=== PATIENT | female | born 1980 | race Caucasian/White ===

== ENCOUNTER 2020-04-28 01:52 | Outpatient (CLI) | payer BC, SELFPAY ==
[2020-04-28 19:30] LABS: SARS-CoV-2 RNA PCR Negative
== END 2020-04-28 01:53 | disposition home or self-care (01) ==
LOC: ANHCOVIDDT 01:58
PROVIDERS: Visit Provider Obstetrics & Gynecology
DX: Z01.812 Encounter for preprocedural laboratory examination (principal); Z11.59 Encounter for screening for other viral diseases
CPT/HCPCS: 87635; C9803; U0003

== ENCOUNTER 2020-05-01 02:24 | Day surgery (SDC) | payer BC, SELFPAY ==
[2020-04-26 10:38] VITALS: BMI 22.1
[2020-05-01] VITALS (12 sets, daily range): BP systolic 115–164; BP diastolic 77–109; PULSE 64–90; RESP 12–20; TEMP 36.3–36.9; O2SAT 98–100
--- NOTE | 2020-05-01 11:42 | WPDANESEPPF ---
Anes - Initial Pre Proc Eval Procedure: Operation Date: 05/01/20 13:00 Proposed Procedures p Bilateral Laparoscopic Ovarian Cystectomy - Salbador Sweeney MD Date/Time: 05/01/20 11:42 Surgeon: Salbador Sweeney MD Pre Op Diagnosis: Bilateral Ovarian Cysts Patient Data Age: 40 Gender: F Height: 5 ft 9 in Weight: 68.04 kg Allergies Allergy/AdvReac Type Severity Reaction Status Date / Time hydrocodone AdvReac Itching Verified 04/26/20 10:36 Home Medications Medication Instructions Recorded Confirmed Type bupropion HCl 300 mg PO DAILY 04/26/20 04/26/20 History clonazepam 0.5 mg PO DAILY PRN 04/26/20 04/26/20 History naproxen 500 mg PO BID PRN 04/26/20 04/26/20 History oxycodone-acetaminophen 1 tablet PO Q6H PRN 04/26/20 04/26/20 History Patient hx anesthesia problems: none Family hx anesthesia problems: none PMFSH Past Medical History Medical History (Updated 05/01/20 @ 11:45 by Matt Jimenez MD) Anxiety Depression Ovarian cyst Surgical History Surgical History (Updated 05/01/20 @ 11:46 by Matt Jimenez MD) H/O arthroscopic knee surgery History of section Social History Social History Smoking status: Never smoker Spiritual care concerns: No Anes - Eval Final PreProcedure Day of Procedure 05/01/20 11:42 Patient weight: normal Heart: regular rate and rhythm Lungs: clear to auscultation Airway: Mallampati scale class II Neurological: alert and oriented Last oral intake: >/= 8 hours ASA classification: II Emergent: no Anesthetic plan: proceed Anesthesia type and monitoring: general ETT and standard monitoring Informed Consent: The patient's anesthetic plan and its attendant risks and benefits were discussed with the patient/family/POA. Questions were solicited and answers provided to the satisfaction of the patient/family/POA.
[2020-05-01] MEDS: ACETAMINOPHEN 500 MG TABLET 1000 MG PO (11:47)
[2020-05-01] MEDS: LACTATED RINGERS 1,000 ML 30 ML IV CONT ×2 (11:50→15:18)
[2020-05-01] MEDS: KETOROLAC 15 MG/ML VIAL (*BKC) IV PUSH (11:53)
--- NOTE | 2020-05-01 11:56 | WPDHPUPDATE1 ---
History and Physical Update Update Date/Time: 05/01/20 11:56 History and Physical has been reviewed, including an updated exam of the patient. There are NO changes in the patient's condition. Risks, benefits, and alternatives have been discussed and questions answered. Patient agrees to proceed with procedure.
--- NOTE | 2020-05-01 15:10 | P.OP_ITS ---
Procedure Note - Detailed Date of procedure: 05/01/20 Pre-op diagnosis: Bilateral Ovarian Cysts Procedure performed: Laparoscopic bilateral ovarian cystectomy, adhesiolysis, resection of endometriosis Description of procedure: The patient was taken the operating room. She was prepped and draped in the dorsal lithotomy position after induction of general anesthesia. A 5 mm left upper quadrant incision was made in the abdominal skin with a scalpel. A 5 mm trocar was inserted the intra-abdominal cavity under direct visualization of the scope. A 5 mm left lower quadrant incision was made with the scalp on the abdominal skin and a 5 mm trocar was inserted the intra- abdominal cavity under direct visualization of the scope. A 5 mm infraumbilical incision was made with scalpel and a 5 mm trocar was inserted into the intra- abdominal cavity under direct visualization of the scope. bilateral ovarian cystectomy was performed. It was performed with sharp and blunt dissection using cautery and irrigation as well. Cyst capsule were peeled out after cysts were unroofed and irrigated and cleared of debris. Ovaries remain hemostatic with cautery. These lysis was performed using sharp and blunt dissection anterior to the uterus between the uterus and the anterior abdominal wall. Adhesions were taken down. Interceed was placed between the uterus and the anterior abdominal wall. The perineum and left pelvic sidewall was resected. It was peeled out over the ureter. Ureter was identified and dissected out down to the level of the uterine artery. Using sharp and blunt dissection the peritoneum was removed and a large portion of the left Poste rior cul-de-sac. Cautery was used to make hemostatic. Interceed was placed over this area. The pelvis was irrigated with copious amounts of normal saline. The pneumoperitoneum was reduced. The trocars were removed. The patient was taken recovery room stable condition. Sponge lap and needle counts were correct x2. Anesthesia: GETA Surgeon: Salbador Sweeney MD Estimated blood loss (mL): 75 Drains: No Packing: No Complications: No immediate complications Condition: stable Disposition: PACU Findings: Bilateral ovarian cyst, chocolate cyst on the left, adhesions between the uterus and anteror Pelvis. large endometrial implant the left posterior cul-de-sac.
--- NOTE | 2020-05-01 15:51 | SUR.PHASEI ---
Informed Dr. oLmas of patient's BP running 150s-160s/90s-100s.
[2020-05-01] MEDS: LABETALOL HCL INJ 100 MG/20 ML VIAL IV PUSH (15:56)
== END 2020-05-01 18:05 | disposition home or self-care (01) ==
PROVIDERS: Visit Provider Obstetrics & Gynecology
PROC: (CPT 49320; principal; 2020-05-01 13:00)
DX: N83.292 Other ovarian cyst, left side (principal); N83.291 Other ovarian cyst, right side
CPT/HCPCS: 58662; 88305; A9270; J0330; J1100; J1170; J1885; J2250; J2405; J2704; J3010; J7030; J7120

== ENCOUNTER 2020-05-10 10:23 | Day surgery (SDC) | payer BC, SELFPAY ==
[2020-05-10] VITALS (13 sets, daily range): BP systolic 116–160; BP diastolic 74–100; PULSE 65–108; RESP 12–20; TEMP 36.8–36.9; O2SAT 98–100
--- NOTE | ~2020-05-10 | CT_ITS ---
EXAMINATION: CT abdomen pelvis w con DATE: 05/10/2020 11:38 INDICATION: Abdominal pain. Severe periumbilical pain radiating to the vagina. Dysuria, hematuria. La paroscopic ovarian cyst removal on 05/01/2020. TECHNIQUE: Computed tomography (CT) of the abdomen and pelvis was performed with 100 cc Omnipaque 350 intravenous contrast. Automated exposure control and iterative reconstruction technique were employe d. Exam dose: 318.12 mGy-cm total exam DLP. COMPARISON: None. FINDINGS: The lung bases are clear of infiltrate or consolidation. Normal heart size. No pericardial or pleural effusion. There are multiple gallstones. No gallbladder wall thickening or pericholecystic fluid or inflammator y change is appreciated. No hepatic, splenic, pancreatic, and adrenal or renal space-occupying mass l esion is detected. No bile duct or pancreatic duct dilatation. No urinary tract calculus or hydrouret eronephrosis is evident. There is an IUD within the uterus. The urinary bladder is unremarkable. There is a moderately large amount of high attenuation fluid in the left and right pelvis, from the c ul-de-sac extending over the roof of the uterus, consistent with pelvic cavity blood. There are prominent adnexal veins, left greater than right. Fluid levels are noted in the ascending colon and hepatic flexure. No bowel obstruction, bowel wall t hickening, pneumatosis or intraperitoneal free air. Normal caliber of the abdominal aorta. No intraperitoneal or retroperitoneal mass lesion or adenopath y is evident. Included skeletal structures are unremarkable. IMPRESSION: Moderate amount of high attenuation fluid in the pelvic area, consistent with blood or h ematoma. IUD within uterus Cholelithiasis Reviewed, dictated and finalized at [facility] Reviewed, dictated and finalized at [facility] IMPRESSION: Moderate amount of high attenuation fluid in the pelvic area, cons istent with blood or hematoma. IUD within uterus Cholelithiasis
--- NOTE | 2020-05-10 10:39 | ED.ABDPAIN ---
HPI - Abdominal Pain General Chief Complaint: Abdominal Pain Stated Complaint: Abd Pain Time Seen by Provider: 05/10/20 10:38 Source: patient Mode of arrival: ambulatory Limitations: no limitations History of Present Illness HPI narrative: Patient is a 40-year-old female with recent ovarian cyst removal by Dr. Sweeney on 05/01/20 who presents for evaluation of severe abdominal pain. Patient was evaluated at Dr. Frank's office this morning and found to be febrile, tachycardic and that she was sent to our facility for evaluation especially given the nature of her pain being severe. She reports extensive bruising over her stomach that enters into the left labia, hematuria, and then severe abdominal pain throughout her abdomen. She reports abdominal bloating. She reports objective fever and chills at home, denies nausea or vomiting. Related Data Home Medications Medication Instructions Recorded Confirmed bupropion HCl 300 mg PO DAILY 04/26/20 05/01/20 clonazepam 0.5 mg PO DAILY PRN 04/26/20 05/01/20 naproxen 500 mg PO BID PRN 04/26/20 05/01/20 oxycodone-acetaminophen 1 tablet PO Q6H PRN 04/26/20 05/01/20 Allergies Allergy/AdvReac Type Severity Reaction Status Date / Time hydrocodone AdvReac Itching Verified 05/01/20 12:43 Review of Systems Review of Systems: Narrative: CONSTITUTIONAL: Reports fever and chills EYES: Denies visual changes, redness, or discharge. ENT: Denies rhinorrhea, congestion, sore throat, or otalgia. CARDIOVASCULAR: Denies chest pain, palpitations, or edema. RESPIRATORY: Denies cough or dyspnea. GASTROINTESTINAL: Reports abdominal pain, bloating GENITOURINARY: Denies dysuria, reports hematuria SKIN: Denies rash or itching. MUSCULOSKELETAL: Denies back pain, joint pain, or myalgia. NEUROLOGIC: Denies headache, numbness, or weakness. [facility] Past Medical History Medical History (Updated 05/10/20 @ 12:28 by Wendi Schneider MD) Anxiety Depression Ovarian cyst Surgical History Surgical History (Updated 05/10/20 @ 11:01 by Wendi Schneider MD) H/O arthroscopic knee surgery History of section History of removal of ovarian cyst Social History Social History Smoking status: Never smoker Gender identity (if verbalized by the patient): Female Spiritual care concerns: No Exam Narrative: Exam Narrative: GENERAL: Awake, alert, tearful, uncomfortable appearing HEAD: Normocephalic, atraumatic. EYES: PERRLA and EOMI. ENT: Nares clear, no rhinorrhea or epistaxis. Mucous membranes moist. NECK: Supple. CHEST: No respiratory distress, breathing even and non labored HEART: Regular rate, sinus rhythm ABDOMEN: Mild distention, tender throughout, positive guarding, laparoscopic surgery sites are clean, dry, intact, the left lower quadrant surgical site is ecchymotic, this extends into the left labia, no labial erythema, edema present, abdomen is peritoneal : Labia majora and minora normal without lesions. The left labia majora is ecchymotic, no significant edema. No evidence of abscess. No erythema. Vagina with out blood. No cervical motion tenderness. No adnexal tenderness or fullness bilaterally. Slight serous discharge present. EXTREMITIES: Normal range of motion. No edema. SKIN: Warm, dry, no rash. NEURO:No focal deficits. Alert and oriented x3 Course Vital Signs Vital signs: Vital Signs Temperature 36.8 C 05/10/20 10:30 Pulse Rate 104 H 05/10/20 10:30 Respiratory Rate 20 05/10/20 10:30 Blood Pressure 160/100 H 05/10/20 10:30 Pulse Oximetry 100 05/10/20 10:30 Temperature 36.8 C 05/10/20 10:30 Pulse Rate 90 05/10/20 11:45 Respiratory Rate 12 05/10/20 11:45 Blood Pressure 137/95 H 05/10/20 11:45 Pulse Oximetry 100 05/10/20 11:45 MDM - Abdominal Pain MDM Narrative Medical decision making narrative: Patient presented with severe abdominal pain [facility] t
--- NOTE | 2020-05-10 10:41 | PC.NURSE ---
RECEIVED CALL FROM DR. WEBSTER OFFICE ABOUT PT BEING SENT FROM OFFICE TO ER WITH POST-OP PAIN. REPORT GIVEN TO GARETH BRANDON.
[2020-05-10] MEDS: ONDANSETRON INJ 4 MG/2 ML VIAL IV PUSH (11:10)
[2020-05-10] MEDS: MORPHINE SULFATE 4 MG/ML INJ IV PUSH (11:10)
[2020-05-10] MEDS: diphenhydrAMINE HCl INJ 50 MG/ML VIAL 25 MG IV PUSH (11:10)
[2020-05-10] MEDS: SODIUM CHLORIDE 0.9% IV 1,000 ML 999 ML IV CONT (11:18)
[2020-05-10 11:19] LABS: Basophils Absolute Auto 0.1 K/mm3 (0.0-0.1); Basophils Percent Auto 0.5 % (0.2-1.2); Eosinophils Absolute Auto 0.7 K/mm3 (0-0.3); Hematocrit 34.3 % (37.0-47.0); Hemoglobin 11.4 g/dL (12.0-15.0); Immature Granulocyte Absolute 0.02 K/mm3 (0.00-0.031); Immature Granulocyte Percent A 0.2 % (0-0.5); Lymphocytes Absolute Auto 1.73 K/mm3 (0.9-3.2); Lymphocytes Percent Auto 16.8 % (18.3-44.2); Mean Corpuscular HGB Conc 33.2 g/dl (32-36); Mean Corpuscular Hemoglobin 32.6 pg (26-34); Mean Platelet Volume 9.5 fl (7.4-10.4); Monocytes Absolute Auto 0.5 K/mm3 (0.1-0.6); Monocytes Percent Auto 4.6 % (2.6-8.5); Neutrophils Absolute Auto 7.3 K/mm3 (1.3-6.7); Neutrophils Percent Auto 70.9 % (45.5-73.1); Platelet Count Result 440 k/mm3 (150-375); Red Cell Distribution Width 13.1 % (11.5-14.5); White Blood Count 10.3 K/mm3 (4.5-10.0)
[2020-05-10 11:34] LABS: Alanine Aminotransferase 34 U/L (4-35); Albumin Level 4.4 g/dL (3.5-5.1); Alkaline Phosphatase 103 U/L (38-126); Anion Gap 6 mmol/L (8-16); Aspartate Amino Transferase 41 U/L (14-36); Bilirubin,Total 2.3 mg/dL (0.2-1.3); Blood Urea Nitrogen 16 mg/dL (7-17); Calcium 8.7 mg/dL (8.4-10.2); Carbon Dioxide 25 mmol/L (22-30); Chloride 106 mmol/L (98-107); Estimated CRCL calculation 97 ml/min; Estimated Glomerular Filt Rate > 60; Glucose 94 mg/dL (65-105); Lipase 72 U/L (23-300); Potassium 3.7 mmol/L (3.4-5.0); Sodium 137 mmol/L (137-145)
[2020-05-10 11:36] LABS: Partial Thromboplastin Time 29.7 SECONDS (22.3-36.8)
[2020-05-10 11:41] LABS: Add Urine Microscopic? YES; Appearance Urine Clear (Clear); Bacteria Urine Trace /hpf; Bilirubin Urine Negative (Negative); Blood Urine 1+ (Negative); Color Urine Yellow (Yellow); Glucose Urine UA Negative (Negative); Ketones Urine Negative (Negative); Leukocyte Esterase Ur Negative LEU/UL (Negative); Mucus Urine Rare /lpf; Nitrate Urine Negative (Negative); Protein Urine Negative (Negative); Specific Grav Ur 1.018 (1.001-1.035); Squamous Epithelial Cell Urine Moderate /hpf (Few); Transitional Epi Cells Urine Rare /hpf (None Seen); Urobilinogen Urine Negative mg/dL (<2.0); WBC Urine 0-3 /hpf
[2020-05-10 12:48] LABS: Lactic Acid Reflex < 0.5 mmol/L (0.7-2.1)
--- NOTE | 2020-05-10 13:47 | PC.NURSE ---
PER FRANCINE ROWLAND, HOLD PATIENT DOWN HERE PER DR WEBSTER
--- NOTE | 2020-05-10 13:55 | PM.IMHP ---
H&P: HPI History of Present Illness Date/Time: 05/10/20 13:55 Chief complaint: intraabdominal hematoma/fluid,post operative compl Narrative: Diane Russo is a 40 year old female Who is 1 week postop from a laparoscopic ovarian cystectomy. Over the past week she has had increasing abdominal pain. She has some bruising on her left lower quadrant that and it extends into the labia on the left. She has tenderness in the lower outer room. She was seen in the office yesterday and looks well. She did not appear to be in any distress. She denies any nausea, vomiting, fever, chills. She denies any abnormal vaginal discharge. She denies any chest pain or shortness of breath. She is evaluated in the ER. A CT scan was performed she is found to have a moderately large hematoma in the pelvis. Review of Systems Constitutional: Constitutional: Reports no additional constitutional complaints, Denies fatigue, Denies headache(s), Denies lethargy and Denies weakness Eyes: Eyes: Reports no additional eye complaints, Denies blurry vision and Denies photophobia ENT: Reports as per HPI, Denies headache(s) and Denies neck pain Cardiovascular: Cardiovascular: Denies chest pain, Denies diaphoresis, Denies leg edema, Denies palpitations and Denies dyspnea Respiratory: Respiratory: Denies hemoptysis, Denies dyspnea and Denies wheezing Gastrointestinal: Gastrointestinal: Denies abdominal pain, Denies melena, Denies bloating, Denies hematochezia, Denies nausea and Denies vomiting Genitourinary: Genitourinary: Reports no additional female genitourinary complaints Musculoskeletal: Musculoskeletal: Denies joint swelling, Denies neck pain, Denies numbness and Denies stiffness Neurologic: Denies Abnormal speech present, Denies confusion, Denies headache(s), Denies numbness and Denies weakness Psychiatric: Psychiatric: Denies anxiety, Denies confusion, Denies depression, Denies homicidal ideation and Denies suicidal ideation Endocrine: Endocrine: Denies fatigue and Denies palpitations Allergic/Immunologic: Allergic/Immunologic: Denies wheezing PMFSH Past Medical History Medical History (Updated 05/10/20 @ 12:28 by Wendi Schneider MD) Anxiety Depression Ovarian cyst Surgical History Surgical History (Updated 05/10/20 @ 11:01 by Wendi Schneider MD) H/O arthroscopic knee surgery History of section History of removal of ovarian cyst Social History Social History Smoking status: Never smoker Gender identity (if verbalized by the patient): Female Spiritual care concerns: No Meds Home Medications and Allergies Home Medications Medication Instructions Recorded Confirmed Type bupropion HCl 300 mg PO DAILY 04/26/20 05/01/20 History clonazepam 0.5 mg PO DAILY PRN 04/26/20 05/01/20 History naproxen 500 mg PO BID PRN 04/26/20 05/01/20 History oxycodone-acetaminophen 1 tablet PO Q6H PRN 04/26/20 05/01/20 History oxycodone-acetaminophen 1 tablet PO Q6H PRN #20 tablet 05/01/20 Rx oxycodone-acetaminophen 1 tablet PO Q6H PRN #20 tablet 05/01/20 Rx Allergies Allergy/AdvReac Type Severity Reaction Status Date / Time hydrocodone AdvReac Itching Verified 05/01/20 12:43 Vital Signs Vital Signs - 24 hr 05/10/20 10:30 05/10/20 11:45 05/10/20 12:40 Temperature 98.3 F Pulse Rate 104 H 90 100 Respiratory Rate 20 12 20 Blood Pressure 160/100 H 137/95 H 116/86 Pulse Oximetry 100 100 100 Exam Const: General: healthy appearing, comfortable and no acute distress; No confusion Orientation/consciousness: No confusion Eyes: Direct Ophthalmoscopy: No photophobia Resp: Auscultation: clear to auscultation bilaterally, no rales, no rhonchi and no wheezes Cardio: Rate: regular rate Heart sounds: no click, no murmurs and no rubs GI: Inspection: non-distended GI Palp: No abdominal tenderness Auscultation: normal bowel sounds Neuro: General: No confusi
--- NOTE | 2020-05-10 14:00 | WPDANESEPPF ---
Anes - Initial Pre Proc Eval Procedure: Operation Date: 05/10/20 14:00 Proposed Procedures p LAPAROSCOPIC EVACUATION OF HEMATOMA - Salbador Sweeney MD Date/Time: 05/10/20 14:00 Surgeon: Salbador Sweeney MD Pre Op Diagnosis: intraabdominal hematoma/fluid,post operative compl Patient Data Age: 40 Gender: F Height: 1.75 m Weight: 67.1 kg Last Vital Signs Temp 36.8 C 05/10/20 10:30 Pulse 108 H 05/10/20 13:56 Resp 14 05/10/20 13:56 BP 132/92 H 05/10/20 13:56 Pulse Ox 98 05/10/20 13:56 Allergies Allergy/AdvReac Type Severity Reaction Status Date / Time hydrocodone AdvReac Itching Verified 05/01/20 12:43 Home Medications Medication Instructions Recorded Confirmed Type bupropion HCl 300 mg PO DAILY 04/26/20 05/01/20 History clonazepam 0.5 mg PO DAILY PRN 04/26/20 05/01/20 History naproxen 500 mg PO BID PRN 04/26/20 05/01/20 History oxycodone-acetaminophen 1 tablet PO Q6H PRN 04/26/20 05/01/20 History oxycodone-acetaminophen 1 tablet PO Q6H PRN #20 tablet 05/01/20 Rx oxycodone-acetaminophen 1 tablet PO Q6H PRN #20 tablet 05/01/20 Rx Laboratory Tests 05/10/20 05/10/20 05/10/20 11:10 11:10 11:10 WBC 10.3 K/mm3 H K/mm3 (4.5-10.0) RBC 3.50 M/mm3 L M/mm3 (4.2-5.4) Hgb 11.4 g/dL L g/dL (12.0-15.0) Hct 34.3 % L % (37.0-47.0) MCV 98.0 fl fl (80-100) MCH 32.6 pg pg (26-34) MCHC 33.2 g/dl g/dl (32-36) RDW 13.1 % % (11.5-14.5) Plt Count 440 k/mm3 H k/mm3 (150-375) MPV 9.5 fl fl (7.4-10.4) Immature Gran % (Auto) 0.2 % % (0-0.5) Neut % (Auto) 70.9 % % (45.5-73.1) Lymph % (Auto) 16.8 % L % (18.3-44.2) [place] % (Auto) 4.6 % % (2.6-8.5) Eos % (Auto) 7.0 % H % (0-4.4) Baso % (Auto) 0.5 % % (0.2-1.2) Lymph # (Auto) 1.73 K/mm3 K/mm3 (0.9-3.2) [place] # (Auto) 0.5 K/mm3 K/mm3 (0.1-0.6) Eos # (Auto) 0.7 K/mm3 H K/mm3 (0-0.3) Baso # (Auto) 0.1 K/mm3 K/mm3 (0.0-0.1) Abs Immat Gran (auto) 0.02 K/mm3 K/mm3 (0.00-0.031) Absolute Neuts (auto) 7.3 K/mm3 H K/mm3 (1.3-6.7) Absolute Nucleated RBC 0.0 K/mm3 K/mm3 (0.0-0.012) Nucleated RBC % 0.0 % % (0.0-0.2) PT 13.0 Seconds Seconds (11.1-14.7) INR 1.0 APTT 29.7 SECONDS SECONDS (22.3-36.8) Sodium 137 mmol/L mmol/L (137-145) Potassium 3.7 mmol/L mmol/L (3.4-5.0) Chloride 106 mmol/L mmol/L (98-107) Carbon Dioxide 25 mmol/L mmol/L (22-30) Anion Gap 6 mmol/L L mmol/L (8-16) BUN 16 mg/dL mg/dL (7-17) Creatinine 0.70 mg/dL mg/dL (0.7-1.0) Estim Creat Clear Calc 97 ml/min ml/min Estimated GFR > 60 (59 - ) Glucose 94 mg/dL mg/dL (65-105) Lactic Acid Calcium 8.7 mg/dL mg/dL (8.4-10.2) Total Bilirubin 2.3 mg/dL H mg/dL (0.2-1.3) AST 41 U/L H U/L (14-36) ALT 34 U/L U/L (4-35) Alkaline Phosphatase 103 U/L U/L (38-126) Total Protein 7.0 g/dL g/dL (6.3-8.2) Albumin 4.4 g/dL g/dL (3.5-5.1) Lipase 72 U/L U/L (23-300) Urine Color Urine Appearance Urine pH Ur Specific [place] Urine Protein Urine Glucose (UA) Urine Ketones Ur Blood (Man) Urine Nitrate Urine Bilirubin Urine Urobilinogen Leukocyte Esterase Rfl Urine RBC Urine WBC Ur Squamous Epith Cells Ur Transition Epith Cell Urine Bacteria Urine Mucus C.trachomatis RNA (TMA) N.gonorrhoeae RNA (TMA) Trichomonas Direct ID 05/10/20 05/10/20 05/10/20
[2020-05-10] MEDS: LACTATED RINGERS 1,000 ML 30 ML IV CONT ×2 (14:10→15:46)
--- NOTE | 2020-05-10 15:53 | P.OP_ITS ---
Procedure Note - Detailed Date of procedure: 05/10/20 Pre-op diagnosis: intraabdominal hematoma/fluid,post operative compl Procedure performed: Description of procedure: The patient was taken the operating room. She was prepped and draped in the dorsal lithotomy position after induction of general anesthesia. A 5 mm left upper quadrant incision was made in the abdominal skin with a scalpel. A 5 mm trocar was inserted the intra-abdominal cavity under direct visualization of the scope. A 5 mm left lower quadrant incision was made with the scalp on the abdominal skin and a 5 mm trocar was inserted the intra- abdominal cavity under direct visualization of the scope. A 5 mm infraumbilical incision was made with scalpel and a 5 mm trocar was inserted into the intra- abdominal cavity under direct visualization of the scope. A large hematoma was visualized in the posterior cul-de-sac. The clot extended up to the infundibulopelvic ligaments bilaterally. Anterior leaf of the hematoma extended to the lower uterine segment. Using irrigation and suction the clot was removed and debrided. It was well organized clot. There was no evidence of any active bleeding. Areas on the right ovary were debrided as well. There was some oozing from a spot on the right ovary was cauterized. There was some oozing on the left ovary as well that was cauterized this is oozing occurred after debridement removal of some clot. With repetitive irrigation suction the clot was almost entirely removed. There was some adherent clots throughout the pelvis that could not be pulled down off of the peritoneum. The ureter appeared intact. A silhouette of the ureter could be identified he was surrounded by adherent clot and little dissection was done in this area due to the sensitivity of the structure. hematoma was placed on the left posterior cul-de-sac where much of the hematoma was. this is likely the area of the postop bleeding. The pelvis was irrigated with copious amounts of normal saline. The pneumoperitoneum was reduced. The trocars were removed. The patient was taken recovery room stable condition. Sponge lap and needle counts were correct x2. Anesthesia: GETA Surgeon: Salbador Sweeney MD Estimated blood loss (mL): 300 Drains: No Packing: No Complications: No immediate complications Condition: stable Disposition: PACU Findings: Large hematoma in the posterior cul-de-sac that was well organized. entire posterior cul-de-sac and was adherent to both the ovaries. No active bleeding was observed.
== END 2020-05-10 17:40 | disposition home or self-care (01) ==
LOC: ANHED 12:31 → ANH2MED 13:48 → ANHSURGERY 14:03
PROVIDERS: Emergency Provider Emergency Medicine; Visit Provider Obstetrics & Gynecology
PROC: (CPT 49320; principal; 2020-05-10 14:00)
DX: N99.840 Postprocedural hematoma of a genitourinary system organ or structure following a genitourinary system procedure (principal); Y83.8 Other surgical procedures as the cause of abnormal reaction of the patient, or of later complication, without mention of misadventure at the time of the procedure; R10.84 Generalized abdominal pain; F41.8 Other specified anxiety disorders
CPT/HCPCS: 49322; 36415; 74177; 80053; 81001; 81025; 83605; 83690; 85025; 85610; 85730; 87070; 87491; 87591; 87808; 96361; 96365; 96375; 96376; 99285; A9270; J0131; J0330; J1100; J1170; J1200; J2250; J2270; J2405; J2704; J3010; J7030; J7120; Q9967; Q9968